=== PATIENT | male | born 1995 | race Two or more races ===

== ENCOUNTER 2023-10-27 09:17 | Emergency (ER) | payer BC, OTHER ==
[~2023-10-27] VITALS: Ht 182.9 cm; Wt 100.0 kg
[2023-10-27 09:40] VITALS: PULSE 94; RESP 18; O2SAT 99
[2023-10-27] MEDS: SODIUM CHLORIDE 0.9% 1,000 ML IV ONE ×2 (09:58→10:32)
[2023-10-27] MEDS: LORazepam 2MG/ML-1ML VIAL IV ONE ×2 (09:58→11:58)
[2023-10-27] MEDS: ONDANSETRON HCL 4 MG/2 ML VIAL IV ONE (09:58)
[2023-10-27 10:00] LABS: Basophils # (auto) 0 10 ^3/uL (0-0.2); Basophils % (auto) 0.5 % (0.0-2.0); Eosinophils # (auto) 0.2 10 ^3/uL (0-0.8); Eosinophils % (auto) 2.5 % (0.0-7.0); Hematocrit 46.3 % (41.0-53.0); Hemoglobin 16.2 g/dL (13.5-17.5); Lymphocytes # (auto) 3.7 10 ^3/uL (0.4-5.4); Lymphocytes % (auto) 40.4 % (10.0-50.0); Mean Corpuscular Hemoglobin 31.5 pg (28.0-32.0); Mean Corpuscular Hgb Conc. 34.9 g/dL (32.0-36.0); Mean Corpuscular Volume 90.1 fL (80.0-100.0); Monocytes # (auto) 0.8 10 ^3/uL (0-1.3); Monocytes % (auto) 8.1 % (0.0-12.0); Neutrophils # (auto) 4.5 10 ^3/uL (1.6-8.6); Neutrophils % (auto) 48.5 % (37.0-80.0); Platelet Count (auto) 320 10^3/uL (140-450); Red Blood Cells 5.13 10^6/uL (4.5-5.90); Red Cell Distribution Width 12.6 % (11.8-14.3); White Blood Cell 9.3 10^3/uL (4.4-10.8)
[2023-10-27 10:27] LABS: Alanine Aminotransferase 54 U/L (7-40); Albumin 4.7 g/dL (3.2-4.8); Alkaline Phosphatase 113 U/L (46-116); Anion Gap 12 (5-15); Aspartate Aminotransferase 51 U/L (13-40); Bilirubin, Total 0.3 mg/dL (0.2-1.0); Calcium 9.8 mg/dL (8.7-10.4); Carbon Dioxide 21 mmol/L (20-30); Chloride 106 mmol/L (98-107); Glucose 131 mg/dL (74-106); Potassium 3.2 mmol/L (3.5-5.1); Sodium 139 mmol/L (136-145); Total Protein 7.6 g/dL (5.7-8.2)
[2023-10-27 10:35] LABS: BUN/Creatinine Ratio 5.1 (10.0-20.0); Blood Urea Nitrogen < 5 mg/dL (9-23)
[2023-10-27] MEDS: THIAMINE 100mg/ml INJ (200mg/2ml VIAL) IV ONE (10:36)
[2023-10-27 10:40] VITALS: TEMP 98
[2023-10-27] MEDS ORDERED: chlordiazePOXIDE HCL 25 MG CAP PO PRN (11:45)
[2023-10-27] MEDS: chlordiazePOXIDE HCL 25 MG CAP PO SCH (12:04)
[2023-10-27 12:51] LABS: Amphetamine Screen, Urine Neg (NEGATIVE); Barbiturate Scree,Urine Neg (NEGATIVE)
[2023-10-27 12:52] LABS: Cannabinoid Screen, Urine Neg (NEGATIVE); Cocaine Screen, Urine Pos (NEGATIVE); Opiate Scree,Urine Neg (NEGATIVE); Phencyclidine Screen, Urine Neg (NEGATIVE)
[2023-10-27 13:10] VITALS: BP 135/59; PULSE 70; RESP 20; O2SAT 97
[2023-10-27 13:15] LABS: Benzodiazephine Screen, Urine Neg (NEGATIVE)
[2023-10-27] MEDS ORDERED: HYDROmorphone HCL 2 MG/ML VL/or syr IV PRN (16:45)
[2023-10-27] MEDS ORDERED: MORPHINE SULFATE INJ 2 MG/ml SYRG IV PRN (16:45)
[2023-10-27] MEDS ORDERED: DOCUSATE SOD 100 MG CAP PO PRN (16:45)
[2023-10-27] MEDS ORDERED: ONDANSETRON HCL 4 MG/2 ML VIAL IV PRN (16:45)
[2023-10-27] MEDS ORDERED: HYDROcodone-ACET 5/325MG TAB PO PRN (16:45)
[2023-10-27] MEDS ORDERED: NITROGLYCERIN 0.4 MG SL TAB SL PRN (16:45)
[2023-10-27] MEDS ORDERED: ACETAMINOPHEN 325 MG TAB PO PRN (16:45)
[2023-10-27] MEDS ORDERED: LORazepam 2MG/ML-1ML VIAL IV PRN (17:00)
[2023-10-27] MEDS ORDERED: SODIUM CHLOR 0.9% PF (SALINE LOCK) 10ML VIAL/SYR IV SCH (22:00)
[2023-10-28] MEDS ORDERED: ENOXAPARIN SOD 40 MG/0.4 ML SYRINGE SC SCH (10:00)
== END 2023-10-27 16:41 | disposition home or self-care (01) ==
LOC: ER 09:17 → TELE 16:41 → UNDOADMIN 16:41
DX: F10.930 Alcohol use, unspecified with withdrawal, uncomplicated (principal); E87.6 Hypokalemia; R07.9 Chest pain, unspecified; Z79.899 Other long term (current) drug therapy; Y90.0 Blood alcohol level of less than 20 mg/100 ml
CPT/HCPCS: 36415; 80053; 80307; 80320; 84484; 85025; 93005; 96361; 96374; 96375; 96376; 99284; J2060; J2405; J3411; J7030; 99291